=== PATIENT | male | born 1950 | race Two or more races ===

== ENCOUNTER 2019-10-28 11:50 | Emergency (ER) | payer OTHER ==
[~2019-10-28] VITALS: Ht 167.6 cm; Wt 81.6 kg
[2019-10-28 12:13] VITALS: BP 139/72
== END 2019-10-28 15:25 | disposition home or self-care (01) ==
LOC: ER 11:50 → EDBD 11:50 → ER 15:25
DX: G93.41 Metabolic encephalopathy (principal); E86.0 Dehydration; R41.0 Disorientation, unspecified
CPT/HCPCS: 93005